=== PATIENT | female | born 1990 | race Asian ===

== ENCOUNTER → 2021-01-16 | Outpatient (CLI) | payer BC ==
[2021-01-16 08:13] LABS: BASOPHILS % 0.7 % (0.0-2.0); EOSINOPHILS % 2.3 % (0.0-5.0); HEMATOCRIT. 39.6 % (36.0-48.0); LYMPHOCYTES % 29.8 % (20.0-50.0); MEAN CORPUSCULAR HEMOGLOBIN 30.9 pg (28.0-32.0); MEAN CORPUSCULAR VOLUME 94.5 fL (81.0-99.0); MEAN PLATELET VOLUME 8.9 fl (7.4-10.4); MONOCYTES % 5.1 % (2.0-8.0); NEUTROPHILS % 62.1 % (40.0-76.0); PLATELET 278 x1000/uL (130-400); RED BLOOD CELL COUNT 4.19 mill/uL (4.2-5.4); RED CELL DISTRIBUTION WIDTH 13.5 % (11.6-14.6)
[2021-01-16 08:22] LABS: CHLORIDE 108 mEq/L (98-107)
[2021-01-16 08:28] LABS: LDL CHOLESTEROL 99 mg/dL (5-100)
[2021-01-16 08:29] LABS: HDL CHOLESTEROL 87 mg/dL (40-59)
[2021-01-16 09:27] LABS: CLARITY URINE CLEAR (CLEAR); COLOR URINE YELLOW (YELLOW); KETONES URINE NEGATIVE (NEGATIVE); LEUKOCYTE ESTERASE URINE NEGATIVE (NEGATIVE); NITRITE URINE NEGATIVE (NEGATIVE); OCCULT BLOOD URINE NEGATIVE (NEGATIVE); PH URINE 6.5 (4.5-8.0); PROTEIN URINE NEGATIVE (NEGATIVE); SPECIFIC GRAVITY URINE 1.019 (1.005-1.030); UROBILINOGEN URINE 0.2 E.U./dL (0.2-1.0)
[2021-01-17 08:10] LABS: HIV SCREEN 4G Non Reactive (Non Reactive)
== END | disposition home or self-care (01) ==
LOC: LAB 07:30
PROVIDERS: ATTEND Internal Medicine
DX: Z00.00 Encounter for general adult medical examination without abnormal findings (principal)
CPT/HCPCS: 36415; 80053; 80061; 81003; 83036; 84443; 85025; 86592; 87389

== ENCOUNTER → 2021-04-14 | Outpatient (CLI) | payer BC ==
[2021-04-14 16:29] LABS: CLARITY URINE CLOUDY (CLEAR); COLOR URINE YELLOW (YELLOW); KETONES URINE NEGATIVE (NEGATIVE); LEUKOCYTE ESTERASE URINE TRACE (NEGATIVE); NITRITE URINE NEGATIVE (NEGATIVE); OCCULT BLOOD URINE NEGATIVE (NEGATIVE); PROTEIN URINE NEGATIVE (NEGATIVE); SPECIFIC GRAVITY URINE 1.024 (1.005-1.030); UROBILINOGEN URINE 0.2 E.U./dL (0.2-1.0)
[2021-04-17 04:08] LABS: NEISSERIA GONORRHOEAE NAA Negative (Negative)
== END | disposition home or self-care (01) ==
LOC: LAB 13:22
PROVIDERS: ATTEND Internal Medicine
DX: R30.0 Dysuria (principal)
CPT/HCPCS: 81003; 87491; 87591